=== PATIENT | female | born 1990 | race Caucasian/White ===

== ENCOUNTER 2020-10-27 11:17 | Outpatient (CLI) | payer OTHER | END 2020-10-27 11:33 | disposition home or self-care (01) | LOC: RAD 11:17 | DX: N20.0 Calculus of kidney (principal) ==

== ENCOUNTER 2020-12-18 09:41 | Outpatient (CLI) | payer OTHER | END 2020-12-18 09:49 | disposition home or self-care (01) | LOC: RAD 09:41 | PROVIDERS: ATTEND Orthopaedic Surgery | DX: M25.561 Pain in right knee (principal) ==